=== PATIENT | female | born 1985 | race Caucasian/White ===

== ENCOUNTER → 2021-01-16 | Outpatient (CLI) | payer OTHER ==
--- NOTE | 2021-01-16 15:09 | RAD ---
Examination: 1. Bilateral digital diagnostic mammogram. 2. Limited right breast ultrasound. INDICATION: 35-year-old woman referred for palpable nodule in the lower-outer right breast identified on clinical exam by her referring provider. Patient reports a history of breast reduction. TECHNIQUE: Bilateral CC and MLO views of the breasts were obtained with 2-D and 3-D technique and reviewed with computer-aided detection. Targeted ultrasound the area of palpable concern was also performed. FINDINGS: The breasts are almost entirely fatty replaced. There is no mammographic correlate to the area of palpable concern as indicated with a BB marker in the lower-outer quadrant right breast. No dominant mass, suspicious calcification or architectural distortion. Targeted ultrasound of this area of reported palpable concern reveals no sonographic abnormality. Subareolar right breast as well as the right axilla reveals no additional unexpected findings. IMPRESSION: Negative bilateral mammogram and targeted right breast ultrasound. Recommend clinical management which may include biopsy if there are any clinically suspicious findings. In the absence of a clinically suspicious finding, age-appropriate routine annual mammographic screening is recommended, starting at age 40 in average risk women. BI-RADS Category 1 Negative Patient entered into a reminder system with target due date for next mammogram.
== END ==
LOC: MAMMO 13:38
PROVIDERS: ATTEND Obstetrics & Gynecology
DX: R92.2 Inconclusive mammogram (principal)
CPT/HCPCS: 76641; 77066; G0279; 77062